=== PATIENT | female | born 1955 | race African-American/Black ===

== ENCOUNTER 2016-10-04 10:22 | Outpatient (CLI) | payer MEDICARE, OTHER ==
[~2016-10-04] VITALS: Ht 157.5 cm; Wt 80.9 kg
[~2016-10-04 10:22] MED LIST: ANTIBIOTIC; ARICEPT10 MG PO; CARAFATE1 G PO; CINNAMON500 MG PO; CO Q-1030 MG PO; DEPRESSION MED; FIBERCON625 MG PO; HYDROCODONE-APA1 TAB PO; LEVOTHYROXINE50 MCG PO; LYRICA75 MG PO; MULTI-DAY VITAM1 TAB PO; NASAL SPRAY; OSCIMIN0.125 M1 PO; POTASSIUM99 M1 PO; PRILOSEC20 MG PO; PROLIA INJ 660 MG/M1 IJ; PROTONIX40 MG PO; ROBAXIN-750750 MG PO; SLOW-MAG 64 MG64 MG PO; SOMA350 MG PO; SUDOGEST30 MG; TYLENOL W/CODEI1 TAB PO; ULTRAM50 MG PO; VICODIN ES 7.51 EAC1 PO; VITAMIN B-121000 MC3 PO; VITAMIN D3400 UNI1 PO; VITAMIN E1000 UNIT PO; XARELTO15 MG PO; [UNRECOGNIZED DRUG - OTHER] PO; [UNRECOGNIZED DRUG - OTHER] PO
[2016-10-04 10:44] VITALS: BP 113/65; Ht 157.5 cm; Wt 80.9 kg
--- NOTE | 2016-10-04 11:01 | NUR ---
1100 PATIENT GIVEN PROLIA INJECTION TO RIGHT UPPER ARM SQ TISSUE WITHOUT OUT PROBLEMS TO THE SITE NOTED, DISCHARGED HOME WITH INSTRUCTIONS. STABLE.
== END 2016-10-04 11:01 ==
LOC: D.OPS 10:22
DX: M81.0 Age-related osteoporosis without current pathological fracture (principal)

== ENCOUNTER → 2016-10-08 16:12 | Outpatient (CLI) | payer MEDICARE, OTHER ==
[2016-10-04 10:44] VITALS: BMI 32.6
== END | disposition home or self-care (01) ==
LOC: D.MAMMO 08:30
DX: Z85.3 Personal history of malignant neoplasm of breast (principal); Z12.31 Encounter for screening mammogram for malignant neoplasm of breast

== ENCOUNTER 2017-05-08 10:24 | Outpatient (CLI) | payer MEDICARE, OTHER ==
[~2017-05-08] VITALS: Ht 157.5 cm; Wt 76.8 kg
[2017-05-08 10:52] VITALS: Ht 157.5 cm; Wt 76.8 kg
== END 2017-05-08 11:07 | disposition home or self-care (01) ==
LOC: D.OPS 10:24
DX: M81.0 Age-related osteoporosis without current pathological fracture (principal)

== ENCOUNTER 2017-11-27 11:19 | Outpatient (CLI) | payer MEDICARE, OTHER ==
[~2017-11-27] VITALS: Ht 157.5 cm; Wt 75.0 kg
[2017-11-27 11:58] VITALS: Ht 157.5 cm; Wt 75.0 kg
== END 2017-11-27 12:15 | disposition home or self-care (01) ==
LOC: D.OPS 11:19
DX: M81.0 Age-related osteoporosis without current pathological fracture (principal)

== ENCOUNTER 2018-02-19 01:58 | Observation (INO) | payer MEDICARE, OTHER ==
[~2018-02-19] VITALS: Ht 157.5 cm; Wt 75.2 kg
--- NOTE | ~2018-02-19 | HEMODYNAMI ---
PATIENT:TATYANA ESPINOZA MEDICAL RECORD: [id number] : 53 LOCATION:[place] [address] ADMISSION DATE: 02/19/18 Generatedon:02/19/201812:51 Patient name: TATYANA ESPINOZA Patient #: [id number] SSN: : 1955 Date of study: 02/19/2018 Page: Of Hemodynamic Procedure Report Patient Data Patient Demographics Procedure consent was obtained First Name: TATYANA Gender: Female Last Name: ALEXIS : 1955 Middle Initial: AZAEL Age: 62 year(s) Patient #: [id number] Race: Black Additional ID: [id number] Contact details Address: [address] [place] [address] State: [place] City: [place] Zip code: [address] Admission Admission Data Admission Date: 02/19/2018 Admission Time: 4:22 Room #: 2115 Procedure Procedure Types Cath Procedure Diagnostic Procedure C [facility] w/Coronaries Procedure Description Procedure Date Procedure Date: 02/19/2018 Procedure Start Time: 12:39 Procedure End Time: 12:45 Procedure Staff Name Function David To MD Performing Physician Jenn Santiago RT Monitor Yelena Reyes RN Nurse Tri Vergara RT Scrub Procedure Data Cath Procedure Fluoroscopy Diagnostic fluoroscopy Total fluoroscopy Time: 0.6 time: 0.6 min min Diagnostic fluoroscopy Total fluoroscopy dose: 214 dose: 214 mGy mGy Contrast Material Contrast Material Type Amount (ml) Isovue 300 46 Entry Location Entry Primary Successful Side Size Upsize Upsize Entry Closure Succes sful Closure Location (Fr) 1 (Fr) 2 (Fr) Remarks Device Remarks Femoral Right 5 Fr Exoseal artery Estimated blood loss: 10 ml Diagnostic catheters Device Type Used For End Catheter Placement MULTIPACK Pigtail 5 Fr Procedure catheter MULTIPACK JL 4.0 5Fr Procedure catheter MULTIPACK 3DRC 5Fr Procedure catheter Procedure Complications No complications Procedure Medications Medication Administration Route Dosage Oxygen NC 2 l/min Lidocaine 1% added to field 20 Heparin Flush Bag added to field 2 bags (1000units/500ml NS) 0.9% NaCl I.V. 100 ml/hr Versed I.V. 2 mg Fentanyl I.V. 100 mcg Fentanyl I.V. 50 mcg Hemodynamics Rest Heart Rate: 47 (bpm) Snapshots Pre Cath Intra NCS Post Cath Vital Signs Time Heart Resp SPO2 etCO2 NIBP (mmHg) Rhythm Pain Sedation Rate (ipm) (%) (mmHg) Status Level (bpm) 12:18:41 51 19 100 0 148/99(112) NSR 0 (11) 10(A) , No pain 12:22:49 49 18 100 38.9 148/87(100) NSR 0 (11) 10(A) , No pain 12:26:57 49 12 100 31.4 132/86(106) NSR 0 (11) 10(A) , No pain 12:31:00 59 18 97 42 122/78(93) NSR 0 (11) 10(A) , No pain 12:35:02 58 15 98 37.5 115/76(93) NSR 0 (11) 10(A) , No pain 12:39:02 60 16 96 40.4 120/73(88) NSR 0 (11) 10(A) , No pain 12:43:07 65 16 100 30 109/64(76) NSR 0 (11) 9(A) , No pain 12:50:11 57 14 100 8.9 119/62(86) NSR 0 (11) 10(A) , No pain Medications Time Medication Route Dose Verified Delivered Reason Notes Effe ctiveness by by 12:26:11 Oxygen NC 2 David Kirk used for l/min Yousuf Reyes RN procedure 12:26:18 Lidocaine 1% added 20ml David Hernandez for local to vial Yousuf To MD anesthetic field 12:26:25 Heparin Flush added 2 David Hernandez used for Bag to bags Yousuf To MD procedure (1000units/500ml field NS) 12:26:36 0.9% NaCl I.V. 100 David Kirk Per ml/hr Yousuf Reyes RN physician 12:39:33 Versed I.V. 2 mg David Kirk for Yousuf Reyes RN sedation 12:39:39 Fentanyl I.V. 100 David Hareie for mcg Tauth MD Reyes RN sedation 12:44:13 Fentanyl I.V. [address] [facility] Yousuf Reyes RN sedation Procedure Log Time Note 12:00:48 Diagnostic Cath status Elective 12:00:50 Jenn Santiago RT(R) sent for patient. Start room use. 12:00:51 Time tracking: Regular hours (M-F 7:00 - 5:00) 12:00:56 Plan of Care:Hemodynamics will remain stable., Cardiac rhythm will remain stable., Comfort level will be maintained., Respiratory function will remain adequate., Patient/ family verbilizes understanding of procedure., Procedure tolerated without complication., Recovers from procedure without complications.. 12:17:32 Patient received from Med II to CCL 2 Alert and oriented. Tansferred to table in Supine position. 12:17:33 Warm blankets applied, and karen hugger turned on for patient comfort. 12:17:33 Correct patient and procedure confirmed by team. 12:17:34 Signed procedure consent form obtained from patient. 12:17:35 ECG and BP/O2 sat monitors applied to patient. 12:17:39 Vital chart was started 12:17:40 Baseline sample Acquired. 12:17:48 Full Disclosure recording started 12:18:02 H&P Date Dictated: 02/19/2018 New H&P dictated by physician.. 12:18:03 Pre-procedure instructions explained to patient. 12:18:04 Pre-op teaching completed and patient verbalized understanding. 12:18:05 Family in waiting room. 12:18:07 Patient NPO since Midnight. 12:21:23 Is the patient allergic to Iodine/contrast media? No. 12:21:25 Was the patient premedicated? Yes 12:21:26 Is patient on blood thinner?Yes 12:21:29 ACC The patient was administered the following blood thiners within the last 24 hours: ACCPlavix 12:21:32 Patient diabetic? No. 12:21:37 Snore? Unknown 12:21:39 Sleep apnea? No 12:21:44 Airway obstruction? Yes asthma 12:21:50 Patient pain scale 0/10 ?. 12:22:01 IV patent on arrival in left forearm with 0.9% NaCl at [facility]. 12:22:10 Lab results completed and on chart. 12:22:13 Right groin area was prepped with chlora-prep and draped in sterile fashion 12:22:14 Alarms reviewed by R. N. 12::15 Sharps counted by scrub and verified by R.N. 12:22:16 Physician paged 12:26:11 Oxygen 2 l/min NC was administered by Yelena Reyes RN; used for procedure; 12::18 Lidocaine 1% 20ml vial added to field was administered by David To MD; for local anesthetic; 12:26:25 Heparin Flush Bag (1000units/500ml NS) 2 bags added to field was administered by David To MD; used for procedure; 12:26:36 0.9% NaCl 100 ml/hr I.V. was administered by Yelena Reyes RN; Per physician; 12:29:59 Zero performed for pressure channel P1 12:30:06 Zero performed for pressure channel P1 12:34:39 Baseline sample Acquired. 12:38:16 Physician arrived 12:38:17 --------ALL STOP TIME OUT------ 12:38:18 Final Timeout: patient, procedure, and site verified with staff and physician. All members of the team are in agreement. 12:38:19 Right groin site verified by team. 12:38:23 Physical assessment completed. ASA score P 2 - A patient with mild systemic disease as per David To MD. 12:38:27 Sedation plan: IV Moderate Sedation Medication:Versed, Fentanyl 12:38:31 Use device set Femoral Dx 12:38:32 ACIST Syringe (38710) opened to sterile field. 12:38:33 Bag Decanter () opened to sterile field. 12:38:33 Medline Cath Pack ([id number]) opened to sterile field. 12:38:34 DIAGNOSTIC WIRE .035 260cm J wire (707953) opened to sterile field. 12:38:35 ACIST Hand Control (00980) opened to sterile field. 12:38:36 ACIST Manifold (12777) opened to sterile field. 12:38:36 DIAGNOSTIC Multipack 5Fr catheter set (ON9961) opened to sterile field. 12:38:37 Tegaderm 4 x 4 (1626W) opened to sterile field. 12:38:38 PERCUTANEOUS ENTRY 19GA needle opened to sterile field. 12:38:41 SHEATH Prelude 5Fr 0.035 (OFQ-0M-71-035) opened to sterile field. 12:38:44 Procedure started. 12:39:33 Versed 2 mg I.V. was administered by Yelena Reyes RN; for sedation; 12:39:39 Fentanyl 100 mcg I.V. was administered by Yelena Reyes RN; for sedation; 12:39:44 A MULTIPACK Pigtail 5 Fr catheter was advanced over the wire and used for Procedure. 12:39:45 Local anesthetic to right femoral artery with Lidocaine 1% by David To MD.INITIAL ACCESS ONLY 12:39:54 A 5 Fr sheath was inserted into the Right Femoral artery 12:40:49 LV angiography performed. 12:40:53 Catheter removed. 12:40:59 EF : 60 % 12:41:06 A MULTIPACK JL 4.0 5Fr catheter was advanced over the wire and used for Procedure. 12:41:11 LCA angiography performed. 12:42:30 Catheter removed. 12:42:36 A MULTIPACK 3DRC 5Fr catheter was advanced over the wire and used for Procedure. 12:42:46 RCA angiography performed. 12:42:48 Catheter removed. 12:42:52 EXOSEAL 5Fr (EX500) opened to sterile field. 12:43:06 Sheath removed intact; hemostasis achieved with Exoseal to the Right Femoral artery. 12:43:23 Procedure ended.(Physican Out) 12:44:00 Fluoroscopy time 00.60 minutes. 12:44:06 Flurop Dose total: 214 12:44:06 Fluoroscopy dose: 214 mGy 12:44:13 Fentanyl 50 mcg I.V. was administered by Yelena Reyes RN; for sedation; 12:44:20 Contrast amount:Isovue 300 46ml. 12:44:22 Sharps counted by scrub and verified by R.N. 12:44:24 Insertion/operative site no bleeding no hematoma. 12:44:25 Post Procedure Pulses reassessed and unchanged 12:44:30 Post procedure rhythm: unchanged. 12:44:33 Estimated blood loss: 10 ml 12:44:35 Post procedure instruction explained to patient.Patient verbalizes understanding. 12:44:47 Procedure and supply charges have been captured, reviewed, submitted and are correct. 12:45:11 Procedure Complication : No complications 12:45:16 Vital chart was stopped 12:45:17 See physician's report for complete and final results. 12:45:21 Report given to [facility]. 12:45:24 Patient transfered to [facility] with Bed. 12:45:27 Procedure ended. 12:45:27 Full Disclosure recording stopped 12:45:30 End room use (Document Last) Device Usage Item Name Manufacture Quantity Catalog Number Hospital Part Current M inimal Lot# / Charge Number Stock Stock Serial# Code ACIST Syringe Acist 1 87652 582114 550152 043811 2 0 (13386) [employer] Bag Decanter Microtek 1 2001S 627603 69006 497456 5 (2001S) Medical Inc. Medline Cath Cardinal 1 [id number] 201007 24778 045847 5 Pack Health ([id number]) DIAGNOSTIC WIRE [facility] 1 092042 368387 414052 446575 3 0 .035 260cm J wire (881925) ACIST Hand Acist 1 93907 977183 402168 840273 5 Control (50447) [employer] Inc ACIST Manifold Acist 1 55906 111532 682478 400611 5 (06567) [employer] Inc DIAGNOSTIC Cardinal 1 TR9910 849169 43449 686406 3 0 Multipack 5Fr Health catheter set (SI5766) Tegaderm 4 x 4 3M 1 1626W 062331 838530 202230 5 (1626W) PERCUTANEOUS Cook Medical 1 Q37683 244257 841367 5 ENTRY 19GA needle SHEATH Prelude Merit 1 PZZ-0I-81-035 372223 227847 945935 5 5Fr 0.035 Medical (JKC-0E-68-035) MULTIPACK Cardinal 1 750177 5 Pigtail 5 Fr Health catheter MULTIPACK JL Cardinal 1 005580 5 4.0 5Fr Health catheter MULTIPACK 3DRC Cardinal 1 578731 5 5Fr catheter Health EXOSEAL 5Fr Cardinal 1 EX500 853501 819186 352444 1 0 (EX500) Health Signature Audit [place] Stage Time Signature Unsigned Intra-Procedure 02/19/2018 Jenn Santiago 12:51:31 PM RT(R) Signatures Monitor : Jenn Santiago Signature : RT Date : Time : [place] [id number] [place] [address]
--- NOTE | ~2018-02-19 | DS ---
PATIENT:TATYANA ESPINOZA :53 MEDICAL RECORD: [id number] DISCHARGE SUMMARY ADMISSION DATE: 02/19/18 DISCHARGE DATE: 02/19/18 DISCHARGE DIAGNOSES: 1. Chest pain of unknown etiology. 2. Normal cardiac catheterization. HOSPITAL COURSE: Mrs. Espinoza presents with anginal symptomatology; however, cardiac catheterization reveals no significant coronary artery disease, chest pain is noncardiac in etiology. Discharged home. No cardiac followup is necessary. TRANSINT:[id number] Voice Confirmation ID: [id number] DOCUMENT ID: [id number] GOOD HOLLOWAY MD at 1705 CC: [id number] DICTATION DATE: 02/19/18 1245 ACID CHANGER: 02/19/18 1429 DIS IN 02/19/18 [place] [id number] [place] [address]
--- NOTE | ~2018-02-19 | OP ---
PATIENT NAME: TATYANA ESPINOZA MEDICAL RECORD: [id number] :53 LOCATION:D.M2 D.2115 ADMISSION DATE:02/19/18 SURGEON: GOOD HOLLOWAY MD DATE OF OPERATION: 02/19/2018 PROCEDURES: 1. Left heart catheterization. 2. Selective coronary angiography. 3. Left ventriculogram. INDICATION: Angina and coronary artery disease. PROCEDURE IN DETAIL: After informed consent was obtained and after a detailed explanation of the risks, benefits as well as alternative therapies, the patient proceeded with angiogram and angioplasty. The right femoral area was prepped and draped in normal sterile fashion. Right femoral artery was cannulated via modified Seldinger technique with placement of 5-Greenlandic sheath. All catheters exchanged through this sheath. FINDINGS: The left ventriculogram was performed in standard 30-degree DOLAN view, reveals good cardiac wall motion throughout all segments. Overall ejection fraction estimated 60%. SELECTIVE CORONARY ANGIOGRAPHY: Left main, left anterior descending, left circumflex, right coronary artery are all smooth-walled vessels with no angiographic evidence of coronary artery disease. OVERALL IMPRESSION: 1. No angiographic evidence of coronary artery disease. 2. Normal left heart pressures. 3. Normal left ventricular systolic function. Chest pain is noncardiac in etiology. No further cardiac workup needs to be ascertained. TRANSINT:[id number] Voice Confirmation ID: [id number] DOCUMENT ID: [id number] GOOD HOLLOWAY MD at 1705 CC: [id number] DICTATION DATE: 02/19/18 1247 CHARTING CLERK: 02/19/18 1317 DIS IN 02/19/18 [facility] [address] [place] [address]
--- NOTE | ~2018-02-19 | HP ---
PATIENT: TATYANA ESPINOZA MEDICAL RECORD: [id number] ACCOUNT: [id number] LOCATION:[facility] D.2115 : 53 ADMISSION DATE: 02/19/18 HISTORY AND PHYSICAL EXAMINATION ADMITTING DIAGNOSIS: Chest pain compatible with angina. HISTORY OF PRESENT ILLNESS: Ms. Espinoza has no previous cardiac history. She had severe onset of classic anginal chest discomfort, a dull aching heaviness, band-like sensation around her chest. She had multiple sublingual nitros, did not relieve it and morphine finally relieved the chest pain. She has had recurrence of it, nitro relieved the recurrence of that. Her EKG is with nonspecific ST-T abnormalities. PHYSICAL EXAMINATION: GENERAL APPEARANCE: Well-nourished, well-developed, appears stated age. Level of distress, comfortable. PSYCHIATRIC: Mental status, alert, normal affect. Orientation, oriented to time, place and person. EYES: Lids and conjunctiva, noninjected. No discharge, no pallor. ENT: Lips, teeth, gums, normal dentition. Oropharynx, no cyanosis, no pallor. NECK: Carotid arteries, bilateral normal upstroke, no bruits, no thrills. JUGULAR VEINS: No jugular venous pressure or distention. CERVICAL LYMPH NODES: Nontender, nonenlarged. THYROID: Not enlarged. Nontender. No nodules. LUNGS: Respiratory effort, unlabored. CHEST: Normal curvature. No thoracic deformity. No chest wall tenderness. Percussion, resonant. Auscultation, clear. No wheezes, no rales, no rhonchi. CARDIOVASCULAR: Precordial exam, nondisplaced. No heaves or pericardial thrills. Rate and rhythm, regular. Heart sounds, normal S1, normal S2. No S3, no gallop, no rub. Systolic murmur, not heard. Diastolic murmur, not heard. EXTREMITIES: No cyanosis, no edema. Peripheral pulses, full and equal in all extremities, except as noted. No bruits appreciated. ABDOMEN: Soft, nondistended. Normal aorta. No bruit. Nontender. No masses. Liver, nontender, no hepatomegaly. Spleen, nontender, no splenomegaly. MUSCULOSKELETAL: No joint tenderness. No joint swelling. No erythema. NEUROLOGICAL: Normal gait, normal strength, normal tone. SKIN: Warm and dry. REVIEW OF SYSTEMS: The patient reports easy bruising but reports no swollen glands. The patient reports no fever, no night sweats, no significant weight gain, no significant weight loss. No significant exercise tolerance. The patient reports no dry eyes, no irritation, no vision change. Patient reports no difficulty hearing and no ear pain. Patient reports no frequent nose bleeds or nose and sinus problems. Patient reports on arm pain on exertion. No shortness of breath while lying down. No history of heart murmur. Patient reports no cough, no wheezing or coughing up blood. Patient reports no abdominal pain, no vomiting. Normal appetite. No diarrhea and not vomiting blood. No nausea and no constipation. Patient reports no incontinence. No difficulty urinating. No hematuria. No increased frequency. Patient reports no muscle aches. No weakness, no arthralgias, no back pain. No swelling of the extremities. Patient reports no abnormal mole, no jaundice, no rashes. Reports no loss of consciousness. No weakness and no numbness. No seizures, dizziness, or headaches. The patient reports no depression, no sleep disturbance, feeling safe in a relationship and no alcohol abuse. Patient reports on fatigue. HISTORY AND PHYSICAL [id number] TATYANA ESPINOZA Reports no runny nose or sinus pressure. No itching, no hives, and no frequent sneezing. OVERALL IMPRESSION: Chest pain compatible with angina with recurrent pain. We will proceed with coronary angiography. Further care depends upon findings of the angiography. TRANSINT:[id number] Voice Confirmation ID: [id number] DOCUMENT ID: [id number] GOOD HOLLOWAY MD at 1705 CC: [id number] DICTATION DATE: 02/19/18 0845 CHAIN FORMING MACHINE OPERATOR: 02/19/18 0853 DIS IN 02/19/18 [facility] [address] [place] [id number]
[~2018-02-19 01:58] MED LIST changes: -SUDOGEST30 MG; +SUDOGEST30 MG PO
[2018-02-19 03:02] LABS: BASOPHILS 0.3 % (0-2); EOSINOPHILS 4.1 % (0-7); HEMATOCRIT 31.7 % (36.0-48.0); HEMOGLOBIN 10.5 g/dL (12-16); LYMPHOCYTES 44.2 % (15-50); MCH 27.1 pg (26.0-34.0); MCHC 33.1 g/dL (31.0-37.0); MCV 81.7 fL (80.0-100.0); MEAN PLATELET VOLUME 8.3 fL (7.4-10.4); MONOCYTES 11.6 % (2-11); NEUTROPHILS 39.8 % (40-80); PLATELET COUNT 136 10x3/uL (130-400); RBC 3.88 10x6/uL (4.00-5.40); RDW 15.8 % (11.5-14.5); WBC 3.2 10x3/uL (4.8-10.8)
[2018-02-19 03:15] LABS: ALBUMIN 3.2 g/dL (3.4-5.0); ALKALINE PHOSPHATASE 65 U/L (46-116); ALT (SGPT) 42 U/L (10-68); CALC OSMOLALITY 287 mosm/kg (275-300); CARBON DIOXIDE 23.3 mmol/L (21.0-32.0); CHLORIDE - SERUM 108 mmol/L (98-107); CREATININE - SERUM 1.3 mg/dL (0.6-1.3); GLUCOSE 101 mg/dL (74-106); POTASSIUM - SERUM 3.3 mmol/L (3.5-5.1); PROTEIN - SERUM 7.7 g/dL (6.4-8.2); SODIUM 142 mmol/L (136-145); UREA NITROGEN 27 mg/dL (7-18); eGFR NON AFRICAN AMERICAN 44 mL/min (90-120)
[2018-02-19 03:22] LABS: CREATINE KINASE 147 UL (21-215); TROPONIN-I < 0.017 ng/mL (0.000-0.060)
[2018-02-19 03:32] VITALS: BP 110/64
[2018-02-19 05:08] VITALS: BP 143/57
[2018-02-19] MEDS ORDERED: DITROPAN X10 MG/BOTT PO (05:12)
[2018-02-19 05:21] VITALS: BP 143/57; Ht 157.5 cm; Wt 75.2 kg
[2018-02-19 07:53] VITALS: BP 114/63
[2018-02-19 11:52] VITALS: BP 113/68
== END 2018-02-19 15:36 | disposition home or self-care (01) ==
LOC: D.ER 01:58 → D.EDHOLD 04:22 → D.M2 04:22 → D.EDHOLD 04:22 → OBSVTIME 04:22 → D.M2 04:28
PROVIDERS: Emergency Medicine
DX: R07.89 Other chest pain (principal)

== ENCOUNTER → 2018-02-28 06:35 | Outpatient (CLI) | payer MEDICARE, OTHER ==
[2018-02-19 05:21] VITALS: BMI 30.3
[~2018-02-28 06:35] MED LIST changes: +DITROPAN X10 MG/BOTT PO
== END | disposition home or self-care (01) ==
LOC: D.MRI 06:35
DX: R19.09 Other intra-abdominal and pelvic swelling, mass and lump (principal)

== ENCOUNTER → 2018-06-04 12:24 | Outpatient (CLI) | payer MEDICARE, OTHER ==
[~2018-06-04] VITALS: Ht 157.5 cm; Wt 76.8 kg
[2018-06-04 12:46] VITALS: BP 115/71; Ht 157.5 cm; Wt 76.8 kg
== END | disposition home or self-care (01) ==
LOC: D.OPS 12:00
DX: M81.0 Age-related osteoporosis without current pathological fracture (principal); Z01.812 Encounter for preprocedural laboratory examination

== ENCOUNTER → 2019-02-27 10:00 | Outpatient (CLI) | payer MEDICARE, OTHER ==
[2018-06-04 12:46] VITALS: BMI 31.0
== END | disposition home or self-care (01) ==
LOC: D.MAMMO 10:00
PROVIDERS: ATTEND Family Medicine
DX: Z12.31 Encounter for screening mammogram for malignant neoplasm of breast (principal)

== ENCOUNTER 2019-08-27 18:03 | Observation (INO) | payer MEDICARE, BC ==
[~2019-08-27] VITALS: Ht 157.5 cm; Wt 78.0 kg
--- NOTE | ~2019-08-27 | ST ---
PATIENT:TATYANA ESPINOZA MEDICAL RECORD: [id number] SEX: F LOCATION:[address] ORDER #: ADMISSION DATE: 08/27/19 AGE OF PATIENT: 63 REFERRING PHYSICIAN: INTERPRETING PHYSICIAN: GOOD HOLLOWAY MD DATE OF SERVICE: 08/28/2019 INDICATIONS: Chest pain. She was exercised on standard Lexiscan protocol with 27 mCi of sestamibi injected at peak stress, 10 mCi used previously for rest images. FINDINGS: Gated SPECT reveals a preserved ejection fraction at 72% with good wall motioning and thickening and brightening throughout all segments. SPECT Imaging: Cardiolite was used for myocardial perfusion agent. There is reversibility anteriorly and apically. This includes the basal, mid, apical anterior segments as well as partially in the apex itself. The degree of reversibility is mild. The amount of myocardium involved is moderate. OVERALL IMPRESSION: This is an abnormal nuclear stress test. Reversible ischemia throughout the anteroapical segment suggestive of hemodynamically significant coronary artery disease. TRANSINT:[id number] Voice Confirmation ID: [id number] DOCUMENT ID: [id number] GOOD HOLLOWAY MD CC: [id number] DICTATION DATE: 08/30/19 121 LINE REPAIRER: 08/30/198 DIS IN 08/28/19 [facility] [address] [place] [id number]
--- NOTE | ~2019-08-27 | HP ---
PATIENT: TATYANA ESPINOZA MEDICAL RECORD: [id number] ACCOUNT: [id number] LOCATION:[address] : 53 ADMISSION DATE: 08/27/19 PCP: NICA GABRIEL MD HISTORY AND PHYSICAL EXAMINATION ADMITTING DIAGNOSES: 1. Chest pain compatible with angina. 2. History of deep vein thrombosis, right upper extremity. 3. Gastroesophageal reflux disease. HISTORY OF PRESENT ILLNESS: Ms. Espinoza has no cardiac history. She began having chest pain yesterday. She had relief with 3 sublingual nitros en route to the Emergency Room. Her EKG is with nonspecific ST-T abnormalities. She has had no recurrent pain. Her troponin is normal. PHYSICAL EXAMINATION: CONSTITUTIONAL/GENERAL APPEARANCE: Well nourished, well developed, appears stated age. EYES: Lids and conjunctivae noninjected. No discharge. No pallor. ENT: Lips within normal limit. No cyanosis. No pallor. NECK: Carotid arteries, bilateral normal upstroke. No bruits. No thrills. No jugular venous pressure or distention. CERVICAL LYMPH NODES: Nontender. Nonenlarged. THYROID: Not enlarged. No nodules. CARDIOVASCULAR: Precordial exam, nondisplaced. No heaves or pericardial thrills. Rate and rhythm, regular. Heart sounds, normal S1, normal S2. No S3, no gallop, no rub. Systolic murmur, not heard. Diastolic murmur, not heard. RESPIRATORY: Respiratory effort, unlabored. Normal curvature. No thoracic deformity. No chest wall tenderness. Percussion, resonant. Auscultation, clear. No wheezes, no rales, no rhonchi. ABDOMEN: Soft, nondistended, nontender. No abdominal pain, no vomiting and normal appetite. MUSCULOSKELETAL: No joint tenderness, normal gait, normal tone. SKIN: Warm and dry. OVERALL IMPRESSION: Chest pain relieved with nitro, relatively typical pain from a cardiac standpoint with pressure dull aching heavy sensation across the anterior chest. We will risk stratify with stress testing, Cardiolite imaging. Further care depends upon the findings of the stress test. TRANSINT:[id number] Voice Confirmation ID: [id number] DOCUMENT ID: [id number] GOOD HOLLOWAY MD CC: [id number] DICTATION DATE: 08/28/19843 RIB PULLER: 08/28/19925 ADM IN [facility] [address] [place] [address]
--- NOTE | ~2019-08-27 | HEMODYNAMI ---
PATIENT:TATYANA ESPINOZA MEDICAL RECORD: [id number] : 53 LOCATION:[facility] D.2120 ADMISSION DATE: 08/27/19 Generatedon:08/28/201915:59 Patient name: TATYANA ESPINOZA Patient #: [id number] SSN: [id number] : 1955 Date of study: 08/28/2019 Page: Of Hemodynamic Procedure Report Patient Data Patient Demographics Procedure consent was obtained First Name: TATYANA Gender: Female Last Name: ALEXIS : 1955 Middle Initial: AZAEL Age: 63 year(s) Patient #: [id number] Race: Black SSN: [id number] Additional ID: [id number] Contact details [address]: [address] [place] [address] State: [place] City: [place] Zip code: [address] Past Medical History Allergies: No known allergies Admission Admission Data Admission Date: 08/27/2019 Admission Time: 20:03 Room #: D2120 Lab Results Lab Result Date: 08/28/2019 Lab Result Time: 0:00 Biochemistry Name Units Result Min Max BUN mg/dl 16 --(---*)-- 7 18 CK-MB ng/ml 0.5 --(*---)-- 0 3.6 Creatinine mg/dl 1 --(--*-)-- 0.6 1.3 eGFR ml/min 59 *-(----)-- 90 120 NONAFRICAN Troponin l ng/ml 0.017 --(-*--)-- 0 0.06 CBC Name Units Result Min Max Hematocrit % 32.3 *-(----)-- 42 54 Hemoglobin g/dl 10.4 *-(----)-- 13.5 17.5 Procedure Procedure Types Cath Procedure Diagnostic Procedure LHC LHC w/Coronaries Procedure Description Procedure Date Procedure Date: 08/28/2019 Procedure Start Time: 15:47 Procedure End Time: 15:54 Procedure Staff Name Function David To MD Performing Physician Nenita Hussein RT Monitor Harshil Diamond RN Nurse Edna Cerrato RT Scrub Venkata Chu RT Pulp Grinder Feeder Procedure Data Cath Procedure Fluoroscopy Diagnostic fluoroscopy Total fluoroscopy Time: 0.9 time: 0.9 min min Diagnostic fluoroscopy Total fluoroscopy dose: 265 dose: 265 mGy mGy Contrast Material Contrast Material Type Amount (ml) Isovue 300 59 Entry Location Entry Primary Successful Side Size Upsize Upsize Entry Closure Succes sful Closure Location (Fr) 1 (Fr) 2 (Fr) Remarks Device Remarks Femoral Right 5 Fr Exoseal artery Estimated blood loss: 5 ml Diagnostic catheters Device Type Used For End Catheter Placement MULTIPACK Pigtail 5 Fr Procedure catheter MULTIPACK JL 4.0 5Fr Procedure catheter MULTIPACK 3DRC 5Fr Procedure catheter Procedure Complications No complications Procedure Medications Medication Administration Route Dosage 0.9% NaCl I.V. 100 ml/hr Oxygen etCO2 Nasal cannula 2 l/min Heparin Flush Bag added to field 2 bags (1000units/500ml NS) Lidocaine 2% added to field 20 Versed I.V. 2 mg Fentanyl I.V. 100 mcg Versed I.V. 2 mg Hemodynamics Rest HGB: 10.4 (g/dl) Heart Rate: 52 (bpm) Snapshots Pre Cath Intra NCS Post Cath Vital Signs Time Heart Resp SPO2 etCO2 NIBP (mmHg) Rhythm Pain Sedation Rate (ipm) (%) (mmHg) Status Level (bpm) 15:27:09 51 11 100 0 159/78(108) NSR 0 (11) 10(A) , No pain 15:31:27 52 15 98 37.9 135/72(97) NSR 0 (11) 10(A) , No pain 15:35:43 60 13 98 37.1 130/74(96) NSR 0 (11) 10(A) , No pain 15:39:57 55 11 97 36.3 121/67(84) NSR 0 (11) 10(A) , No pain 15:44:13 55 11 97 40.9 114/64(80) NSR 0 (11) 10(A) , No pain 15:48:23 58 13 97 42.4 125/74(94) NSR 0 (11) 10(A) , No pain 15:52:37 75 12 96 40.9 123/61(90) NSR 0 (11) 9(A) , No pain Medications Time Medication Route Dose Verified Delivered Reason Notes Eff ectiveness by by 15:31:26 0.9% NaCl I.V. 100 Harshil Harshil Per ml/hr Dara Diamond physician RN RN 15:31:36 Oxygen etCO2 2 Harshil Harshil for low 02 Nasal l/min Lorigan Lorigan sats cannula RN RN 15:31:48 Heparin Flush added 2 Harshil Harshil used for Bag to bags Lorigan Lorigan procedure (1000units/500ml field RN RN NS) 15:32:02 Lidocaine 2% added 20ml Harshil Harshil for local to vial Lorigan Lorigan anesthetic field RN RN 15:48:39 Versed I.V. 2 mg Harshil Harshil for Lorigan Lorigan sedation RN RN 15:48:48 Fentanyl I.V. 100 Harshil Harshil for mcg Lorigan Lorigan sedation RN RN 15:49:31 Versed I.V. 2 mg Harshil Harshil for Lorigan Lorigan sedation RN neon electrician Log Time Note 15:15:23 Diagnostic Cath Status : Urgent 15:17:05 Venkata Chu RT(R) sent for patient. Start room use. 15:17:07 Time tracking: Regular hours (M-F 7:00 - 5:00) 15:17:12 Plan of Care:Hemodynamics will remain stable., Cardiac rhythm will remain stable., Comfort level will be maintained., Respiratory function will remain adequate., Patient/ family verbilizes understanding of procedure., Procedure tolerated without complication., Recovers from procedure without complications.. 15:17:17 Procedure Status Urgent Heart Cath (IP). 15:18:17 Lab Result : BUN 16 mg/dl 15:18:17 Lab Result : Creatinine 1 mg/dl 15:18:17 Lab Result : CK-MB 0.5 ng/ml 15:18:17 Lab Result : Troponin l 0.017 ng/ml 15:18:17 Lab Result : eGFR NONAFRICAN 59 ml/min 15:18:17 Lab Result : Hemoglobin 10.4 g/dl 15:18:17 Lab Result : Hematocrit 32.3 % 15:18:22 Lab results completed and on chart. 15:18:35 Patient received from Med II to CCL 1 Alert and oriented. Tansferred to table in Supine position. 15:18:43 Signed procedure consent form obtained from spouse. 15:18:43 Warm blankets applied, and karen hugger turned on for patient comfort. 15:18:44 Correct patient and procedure confirmed by team. 15:18:46 ECG and BP/O2 sat monitors applied to patient. 15:21:20 H&P Date Dictated: 08/28/2019 Emergent; H&P N/A, Within 30 days and on chart.. 15:21:29 Risk of Mortality: 0.9 15:21:32 Risk of blood transfusion: 6.5 15:21:35 Risk of LASHONDA: 2.3 15:21:39 Stress Test: yes; abnormal ? 15:21:41 Alarms reviewed by R. N. 15:21:41 Sharps counted by scrub and verified by R.N. 15:21:48 Right groin area was prepped with chlora-prep and draped in sterile fashion 15:21:52 Vital chart was started 15:21:53 Pre-procedure instructions explained to patient. 15:21:54 Pre-op teaching completed and patient verbalized understanding. 15::59 Patient NPO since Lunch. 15:22:07 Patient allergic to No known allergies 15:22:10 Is the patient allergic to Iodine/contrast media? No. 15:22:12 Was the patient premedicated? Yes 15:22:17 Snore? No 15:22:18 Sleep apnea? No 15:22:19 Deviated septum? No 15:22:20 Opens mouth fully? Yes 15:22:21 Sticks out tongue? Yes 15:22:24 Airway obstruction? No ? 15:22:27 Dentures? No ? 15:22:30 Pre procedure: right dorsailis pedis pulse 2+ Normal; easily identifiable; not easily obliterated 15:22:33 Patient pain scale 0/10 ?. 15:26:51 Baseline sample Acquired. 15::57 Rhythm: sinus bradycardia 15::59 Full Disclosure recording started 15::02 Family in patients room. 15:27:07 Is patient on blood thinner?Yes 15:27:10 ACC The patient was administered the following blood thiners within the last 24 hours: Xarelto 15::21 LAST DOES OF XARELTO ON THE 15:27:23 Patient diabetic? No. 15:27:25 Patient not . Patient is over age 55. 15:27:34 Use device set Femoral Dx 15:27:35 ACIST Syringe (99020) opened to sterile field. 15:27:35 Bag Decanter (2002S) opened to sterile field. 15:27:36 ACIST Hand Control (68847) opened to sterile field. 15:27:36 ACIST Manifold (86791) opened to sterile field. 15:27:37 Tegaderm 4 x 4 (1626W) opened to sterile field. 15:27:39 Medline Cath Pack ([id number]) opened to sterile field. 15:27:40 DIAGNOSTIC Multipack 5Fr catheter set (OS5332) opened to sterile field. 15:27:40 SHEATH 5FR [place] (XNM893) opened to sterile field. 15:27:41 EMERALD Guide Wire (645-554) opened to sterile field. 15:31:26 0.9% NaCl 100 ml/hr I.V. was administered by Harshil Diamond RN; Per physician; Verbal order read back and verified. 15:31:36 Oxygen 2 l/min etCO2 Nasal cannula was administered by Harshil Diamond RN; for low 02 sats; Verbal order read back and verified. 15:31:48 Heparin Flush Bag (1000units/500ml NS) 2 bags added to field was administered by Harshil Diamond RN; used for procedure; Verbal order read back and verified. 15:32:02 Lidocaine 2% 20ml vial added to field was administered by Harshil Diamond RN; for local anesthetic; Verbal order read back and verified. 15:46:00 --------ALL STOP TIME OUT------ 15:46:01 Final Timeout: patient, procedure, and site verified with staff and physician. All members of the team are in agreement. 15:46:02 Right groin site verified by team. 15:46:05 Fire Safety Assessment: A--An alcohol-based skin anteseptic being used preoperatively., C--Open oxygen or nitrous oxide is being used., D--An ESU, laser, or fiber-optic light is being used. 15:46:10 Physical assessment completed. ASA score P 2 - A patient with mild systemic disease as per David To MD. 15:46:16 3a) 45-59 Moderately reduced kidney function. 15:46:20 Maximum allowable contrast dose (3.7 X eGFR X 0.75)163 ml. 15:46:23 Sedation plan: IV Moderate Sedation Medication:Versed, Fentanyl 15:47:06 Procedure started. 15:47:48 Local anesthetic to right femoral artery with Lidocaine 2% by David To MD.INITIAL ACCESS ONLY 15:48:39 Versed 2 mg I.V. was administered by Harshil Diamond RN; for sedation; Verbal order read back and verified. 15:48:39 A 5 Fr sheath was inserted into the Right Femoral artery 15:48:48 Fentanyl 100 mcg I.V. was administered by Harshil Diamond RN; for sedation; Verbal order read back and verified. 15:48:49 A MULTIPACK Pigtail 5 Fr catheter was advanced over the wire and used for Procedure. 15:48:54 LV gram done using DOLAN 15:48:57 Injector settings: Ml/sec: 10, Volume: 20, 15:49:10 EF : 60 % 15:49:12 Catheter removed. 15:49:31 Versed 2 mg I.V. was administered by Harshil Diamond RN; for sedation; Verbal order read back and verified. 15:49:31 A MULTIPACK JL 4.0 5Fr catheter was advanced over the wire and used for Procedure. 15:50:35 LCA angiography performed. 15:50:37 Catheter removed. 15:50:46 A MULTIPACK 3DRC 5Fr catheter was advanced over the wire and used for Procedure. 15:51:18 RCA angiography performed. 15:51:19 Catheter removed. 15:51:23 EXOSEAL 5Fr (EX500) opened to sterile field. 15:51:52 Sheath removed intact; hemostasis achieved with Exoseal to the Right Femoral artery. 15:52:15 Procedure ended.(Physican Out) 15:53:02 Fluoroscopy time 00.90 minutes. 15:53:11 Fluoroscopy dose: 265 mGy 15:53:11 Flurop Dose total: 265 15:53:17 Dose Area Product 85697 mGy/cm. 15:53:22 Contrast amount:Isovue 300 59ml. 15:53:25 Maximum allowable dose exceeded? No. 15:53:26 Sharps counted by scrub and verified by R.N. 15:53:29 Post-op/insertion site Right Femoral artery dressed using a 4 x 4 and Tegaderm. 15:53:32 Post-procedure physical assessment completed. ASA score P 2 - A patient with mild systemic disease as per David To MD. 15:53:36 Post procedure rhythm: sinus rhythm 15:53:41 Estimated blood loss: 5 ml 15:53:42 Post procedure instruction explained to patient.Patient verbalizes understanding. 15:53:43 Patient needs reinforcement of post procedure teaching. 15:54:14 Procedure and supply charges have been captured, reviewed, submitted and are correct. 15:54:19 Procedure Complication : No complications 15:54:21 Vital chart was stopped 15:54:22 [facility] Findings: mild to moderate CAD (<70%) 15:54:24 Operative report dictated upon procedure completion. 15:54:25 See physician's report for complete and final results. 15:54:38 Report given to PCU. 15:54:41 Patient transfered to PCU with Bed. 15:54:42 Procedure ended. 15:54:42 Full Disclosure recording stopped 15:54:44 End room use (Document Last) 15:58:28 End room use (Document Last) 15:58:45 End room use (Document Last) Device Usage Item Name Manufacture Quantity Catalog Hospital Part Current Minimal L ot# / Number Charge Number Stock Stock Serial# Code ACIST Acist 1 28251 944154 493336 266926 20 Syringe Medical (66566) Systems Inc Bag Microtek 1 2001S 922578 95144 852697 5 Decanter Medical Inc. () ACIST Hand Acist 1 14856 160774 862119 316726 5 Control Medical (19270) Systems Inc ACIST Acist 1 05960 484862 110985 222180 5 Manifold Medical (14644) Systems Inc Tegaderm 4 3M 1 1626W 142208 978272 295485 5 x 4 (1626W) Medline Medline 1 [id number] 066572 71605 832888 5 Cath Pack ([id number]) DIAGNOSTIC Cardinal 1 YK0179 630441 88460 231504 30 [facility] 5Fr catheter set (GN4429) SHEATH 5FR Terumo 1 JOQ968 924193 295141 658531 5 [place] (FAO956) EMERALD Cardinal 1 502-455 669758 988691 333494 5 Guide Wire [facility] (233-601) MULTIPACK Cardinal 1 509543 5 Pigtail 5 Health Fr catheter MULTIPACK Cardinal 1 549554 5 JL 4.0 5Fr Health catheter MULTIPACK Cardinal 1 052803 5 3DRC 5Fr Health catheter EXOSEAL 5Fr Cardinal 1 EX500 348619 489346 965368 10 (EX500) Health Signature Audit [place] Stage Time Signature Unsigned Intra-Procedure 08/28/2019 Nenita Hussein 3:58:28 PM RT(R) Intra-Procedure 08/28/2019 Harshil 3:58:45 PM Dara SHERMAN Intra-Procedure 08/28/2019 David To 3:59:06 PM [id number] [place] [address]
--- NOTE | ~2019-08-27 | DS ---
PATIENT:TATYNAA ESPINOZA :53 MEDICAL RECORD: [id number] DISCHARGE SUMMARY ADMISSION DATE: 08/27/19 DISCHARGE DATE: 08/28/19 DATE OF DISCHARGE: 08/28/2019 DISCHARGE DIAGNOSES: 1. Chest pain. 2. Normal cardiac catheterization this admission. HOSPITAL COURSE: Mrs. Espinoza presents with chest pain; however, cardiac catheterization was normal. Discharged home to follow up with her primary care physician for noncardiac chest pain. TRANSINT:[id number] Voice Confirmation ID: [id number] DOCUMENT ID: [id number] GOOD HOLLOWAY MD CC: [id number] DICTATION DATE: 08/28/19 1555 LUMBER SALVAGER: 08/29/19 0400 DIS IN 08/28/19 [id number] [place] [address]
--- NOTE | ~2019-08-27 | OP ---
PATIENT NAME: TATYANA ESPINOZA MEDICAL RECORD: [id number] :53 LOCATION:D.M2 D.0 ADMISSION DATE:08/27/19 SURGEON: GOOD HOLLOWAY MD DATE OF OPERATION: 08/28/2019 PROCEDURES: 1. Left heart catheterization. 2. Selective coronary angiography. 3. Left ventriculogram. INDICATION: Chest pain and abnormal nuclear stress test. PROCEDURE IN DETAIL: After informed consent was obtained and after a detailed description of the risks, benefits as well as alternative therapies, the patient elected to proceed with angiogram and heart catheterization. The right femoral area was prepped and draped in normal sterile fashion. The right femoral artery was cannulated via modified Seldinger technique with placement of 6-Turkish sheath. All catheters exchanged through this sheath. FINDINGS: Left ventriculogram was performed in standard 30-degree DOLAN view, reveals good cardiac wall motion, ejection fraction estimated 60%. SELECTIVE CORONARY ANGIOGRAPHY: Left main, left anterior descending, left circumflex, right coronary artery are all smooth-walled vessels with no angiographic evidence of coronary artery disease. OVERALL IMPRESSION: 1. No angiographic evidence of coronary artery disease. 2. Normal left heart pressures. 3. Normal left ventricular systolic function. Chest pain is noncardiac in etiology. Stress test was false positive. No further cardiac workup necessary. TRANSINT:[id number] Voice Confirmation ID: [id number] DOCUMENT ID: [id number] GOOD HOLLOWAY MD CC: [id number] DICTATION DATE: 08/28/19 1557 BREEDING TECHNICIAN: 08/28/192141 DIS IN 08/28/19 [id number] [place] [address]
[2019-08-27 18:31] LABS: BASOPHILS 0 % (0-2); EOSINOPHILS 0.6 % (0-7); HEMATOCRIT 32.3 % (36.0-48.0); HEMOGLOBIN 10.4 g/dL (12-16); IMMATURE GRANULOCYTES 0.2 % (0-5); LYMPHOCYTES 18.6 % (15-50); MCH 27.7 pg (26.0-34.0); MCHC 32.2 g/dL (31.0-37.0); MCV 86.1 fL (80.0-100.0); MEAN PLATELET VOLUME 8.6 fL (7.4-10.4); MONOCYTES 7.5 % (2-11); NEUTROPHILS 73.1 % (40-80); RBC 3.75 10x6/uL (4.00-5.40); RDW 16.4 % (11.5-14.5); WBC 4.7 10x3/uL (4.8-10.8)
[2019-08-27 18:32] LABS: PLATELET COUNT 152 10x3/uL (130-400)
[2019-08-27 18:41] LABS: CALC OSMOLALITY 281 mosm/kg (275-300); CALCIUM 8.5 mg/dL (8.5-10.1); CARBON DIOXIDE 27.4 mmol/L (21.0-32.0); CHLORIDE - SERUM 107 mmol/L (98-107); GLUCOSE 95 mg/dL (74-106); POTASSIUM - SERUM 3.5 mmol/L (3.5-5.1); SODIUM 141 mmol/L (136-145); UREA NITROGEN 16 mg/dL (7-18); eGFR NON AFRICAN AMERICAN 59 mL/min (90-120)
[2019-08-27 18:52] LABS: APTT 31.5 SECONDS (22.8-39.4); INR 1.08 (0.85-1.17); PROTIME 13.5 SECONDS (11.6-15.0)
[2019-08-27 18:58] LABS: ALBUMIN 3.1 g/dL (3.4-5.0); ALKALINE PHOSPHATASE 89 U/L (46-116); ALT (SGPT) 47 U/L (10-68); BILIRUBIN - TOTAL 0.31 mg/dL (0.2-1.3); CKMB 0.8 U/L (0.0-3.6); CREATINE KINASE 75 UL (21-215); MAGNESIUM - SERUM 1.8 mg/dL (1.8-2.4)
[2019-08-27 18:59] LABS: TROPONIN-I < 0.017 ng/mL (0.000-0.060)
--- NOTE | 2019-08-27 21:11 | NUR ---
ARRIVED FROM ER. PATIENT IS ALERT AND ORIENTED. RESPIRATIONS ARE EVEN AND UNLABORED. NO S/S OF DISTRESS. NO C/O PAIN. CALL LIGHT WITHIN REACH. WILL CPOC.
[2019-08-27] MEDS ORDERED: ATIVAN1 MG PO (21:25)
[2019-08-27 21:40] VITALS: BP 159/59; BMI 31.5
[2019-08-28] VITALS: BP 129/69
[2019-08-28 00:41] LABS: CKMB 0.6 U/L (0.0-3.6); CREATINE KINASE 69 UL (21-215); TROPONIN-I < 0.017 ng/mL (0.000-0.060)
[2019-08-28 04:00] VITALS: BP 126/66
--- NOTE | 2019-08-28 07:10 | NUR ---
REPORT RECEIVED FROM SPECIAL SERVICES DIRECTOR AND PATIENT CARE ASSUMED. PATIENT LAYING IN BED AWAKE, ALERT AND ORIENTED X 4. PATIENT IS STABLE AND VSS. PATIENT DENIES ANY NEEDS OR PAIN. WILL CONTINUE WITH PLAN OF CARE. SR UP X2 BED IN LOW POSITION AND CALL LIGHT IN REACH. AT BS.
[2019-08-28 07:28] LABS: CKMB 0.5 U/L (0.0-3.6); CREATINE KINASE 59 UL (21-215)
[2019-08-28 07:32] LABS: TROPONIN-I < 0.017 ng/mL (0.000-0.060)
[2019-08-28 09:06] VITALS: BP 122/71
[2019-08-28 12:23] VITALS: Ht 157.5 cm; Wt 78.0 kg
--- NOTE | 2019-08-28 15:14 | NUR ---
RECEVED PHONE CALL FROM DR HOLLOWAY. STATES PATIENT HAD ABNORMAL RESULTS TO STRESS TEST AND NEEDS A LEFT HEART CATH JOSE AND TO PREP PATIENT JOSE. INFORMED THAT PATIENT HAD LUNCH AND DR HOLLOWAY SAID DUE TO ABNORMAL RESULT SHE WILL PROCEED WITH [place]. OBTAINED CONSENTS. PATIENT PREOP PER MAR ORDERS. PATIENT IS STABLE AND VSS. PATIENT TO TOWNSHIP CLERK VIA HOSPITAL BED AND [place]OWNS[place]IP CLERK TEAM. TO WAIT IN HOSPITAL ROOM.
--- NOTE | 2019-08-28 18:06 | NUR ---
PATIENT IS STABLE AND VSS. PATIENT DENIES ANY NEEDS OR PAIN. ORDERS RECIEVED FOR DC. WRITTEN AND VERBAL INSTRUCTIONS GIVEN. PATIENT AND VERBALIZED UNDERSTANDING. PATIENT SIGNED PAPERWORK. IV DCD WITHOUT DIFFICULTY WITH ENTIRE CATHETER INTACT. PRESSURE DRESSING APPLIED. PATIENT TO FRONT DOOR VIA WC ACCOMPANIED BY HOSPITAL PERSONNEL. PATIENT IS DCD TO HOME FOR SELF CARE. PATIENT TO PRIVATE VEHICLE DRIVEN BY .
== END 2019-08-28 18:10 | disposition home or self-care (01) ==
LOC: D.ER 18:03 → OBSVTIME 20:03 → D.M2 20:03
PROVIDERS: Emergency Medicine; Family Medicine; ADMIT Internal Medicine Interventional Cardiology; ATTEND Internal Medicine Interventional Cardiology
DX: R07.9 Chest pain, unspecified (principal); K21.9 Gastro-esophageal reflux disease without esophagitis; Z86.718 Personal history of other venous thrombosis and embolism

== ENCOUNTER 2019-11-18 02:12 | Emergency (ER) | payer MEDICARE, BC ==
[~2019-11-18] VITALS: Ht 157.5 cm; Wt 76.8 kg
[~2019-11-18 02:12] MED LIST changes: +ATIVAN1 MG PO
[2019-11-18 02:14] VITALS: Ht 157.5 cm; Wt 76.8 kg
[2019-11-18 02:43] LABS: BASOPHILS 0.2 % (0-2); EOSINOPHILS 0.3 % (0-7); HEMATOCRIT 32.5 % (36.0-48.0); HEMOGLOBIN 10.8 g/dL (12-16); IMMATURE GRANULOCYTES 0.2 % (0-5); MCH 27.8 pg (26.0-34.0); MCHC 33.2 g/dL (31.0-37.0); MCV 83.8 fL (80.0-100.0); MONOCYTES 5.3 % (2-11); RBC 3.88 10x6/uL (4.00-5.40); RDW 15.8 % (11.5-14.5); WBC 5.9 10x3/uL (4.8-10.8)
[2019-11-18 02:45] LABS: PLATELET COUNT 232 10x3/uL (130-400)
[2019-11-18 03:14] LABS: CALC OSMOLALITY 281 mosm/kg (275-300); CALCIUM 9.4 mg/dL (8.5-10.1); CARBON DIOXIDE 23.9 mmol/L (21.0-32.0); CHLORIDE - SERUM 104 mmol/L (98-107); CREATININE - SERUM 1.1 mg/dL (0.6-1.3); GLUCOSE 116 mg/dL (74-106); POTASSIUM - SERUM 3.2 mmol/L (3.5-5.1); SODIUM 139 mmol/L (136-145); UREA NITROGEN 22 mg/dL (7-18); eGFR NON AFRICAN AMERICAN 53 mL/min (90-120)
[2019-11-18 03:15] LABS: APTT 32.7 SECONDS (22.8-39.4); INR 1.84 (0.85-1.17)
[2019-11-18 03:23] LABS: D-DIMER-QUANTITATIVE < 0.27 ug/mLFEU (0.20-0.54)
[2019-11-18 03:37] LABS: ALBUMIN 3.6 g/dL (3.4-5.0); ALKALINE PHOSPHATASE 107 U/L (30-120); ALT (SGPT) 114 U/L (10-68); BILIRUBIN - TOTAL 0.52 mg/dL (0.2-1.3); CKMB 0.8 U/L (0.0-3.6); CREATINE KINASE 71 UL (21-215); MAGNESIUM - SERUM 1.9 mg/dL (1.8-2.4); PROTEIN - SERUM 8.1 g/dL (6.4-8.2)
[2019-11-18 03:38] LABS: TROPONIN-I < 0.017 ng/mL (0.000-0.060)
[2019-11-18 05:11] LABS: CKMB 0.7 U/L (0.0-3.6); CREATINE KINASE 67 UL (21-215)
[2019-11-18 05:14] LABS: TROPONIN-I < 0.017 ng/mL (0.000-0.060)
[2019-11-18] MEDS ORDERED: PROTONIX40 MG PO (05:34)
[2019-11-18 06:29] VITALS: BP 134/64
== END 2019-11-18 06:32 | disposition home or self-care (01) ==
LOC: D.ER 02:12
PROVIDERS: Family Medicine
DX: R07.9 Chest pain, unspecified (principal); K21.9 Gastro-esophageal reflux disease without esophagitis; E87.6 Hypokalemia

== ENCOUNTER → 2020-01-15 09:15 | Outpatient (CLI) | payer MEDICARE, BC ==
[2019-11-18 02:14] VITALS: BMI 31.0
== END | disposition home or self-care (01) ==
LOC: D.NM 09:15
PROVIDERS: ATTEND Internal Medicine Gastroenterology
DX: R93.3 Abnormal findings on diagnostic imaging of other parts of digestive tract (principal)

== ENCOUNTER 2020-05-18 18:20 | Observation (INO) | payer MEDICARE, BC ==
[~2020-05-18] VITALS: Ht 157.5 cm; Wt 76.7 kg
--- NOTE | ~2020-05-18 | HEMODYNAMI ---
PATIENT:TATYANA ESPINOZA MEDICAL RECORD: [id number] : 53 LOCATION:[facility] D.2121 ADMISSION DATE: 05/19/20 Generatedon:05/19/202014:19 Patient name: TATYANA ESPINOZA Patient #: [id number] SSN: [id number] : 1955 Date of study: 05/19/2020 Page: Of Hemodynamic Procedure Report Patient Data Patient Demographics Procedure consent was obtained First Name: TATYANA Gender: Female Last Name: ALEXIS : 1955 Middle Initial: AZAEL Age: 64 year(s) Patient #: [id number] Race: Black SSN: [id number] Additional ID: [id number] Contact details [address]: [address] [place] [address] State: [place] City: [place] Zip code: [address] Past Medical History Allergies Allergen Reaction Date Comments Reported Other allergy 05/19/2020 FLORENCE HERRERA Admission Admission Data Admission Date: 05/19/2020 Admission Time: 0:34 Arrival Date: 05/12/2020 Arrival Time: 0:00 Room #: D.2121 Height (in.): 61.81 BSA: 1.78 (m2) Height (cm.): 157 BMI: 31.24 (kg/m2) Weight (lbs.): 169.76 Weight (kg.): 77 Lab Results Lab Result Date: 05/19/2020 Lab Result Time: 0:00 Biochemistry Name Units Result Min Max BUN mg/dl 16 --(---*)-- 7 18 Creatinine mg/dl 0.9 --(-*--)-- 0.6 1.3 eGFR ml/min 67.40360 *-(----)-- 90 120 NONAFRICAN CBC Name Units Result Min Max Hematocrit % 32.5 *-(----)-- 42 54 Hemoglobin g/dl 10.4 *-(----)-- 13.5 17.5 Procedure Procedure Types Cath Procedure Diagnostic Procedure [facility] w/Coronaries Procedure Description Procedure Date Procedure Date: 05/19/2020 Procedure Start Time: 14:04 Procedure End Time: 14:17 Procedure Staff Name Function Robert Napoles MD Performing Physician Florina Dukes RT Monitor Nenita Hussein RT Scrub Yelena Reyes RN Nurse Procedure Data Cath Procedure Fluoroscopy Diagnostic fluoroscopy Total fluoroscopy Time: 0.9 time: 0.9 min min Diagnostic fluoroscopy Total fluoroscopy dose: 201 dose: 201 mGy mGy Contrast Material Contrast Material Type Amount (ml) Isovue 300 40 Entry Location Entry Primary Successful Side Size Upsize Upsize Entry Closure Succes sful Closure Location (Fr) 1 (Fr) 2 (Fr) Remarks Device Remarks Femoral Right 5 Fr Exoseal artery Estimated blood loss: 5 ml Diagnostic catheters Device Type Used For End Catheter Placement MULTIPACK JL 4.0 5Fr Left Coronary catheter Angiography MULTIPACK 3DRC 5Fr Right Coronary catheter Angiography MULTIPACK Pigtail 5 Fr LV Angiography catheter Procedure Complications No complications Procedure Medications Medication Administration Route Dosage 0.9% NaCl I.V. 100 ml/hr Oxygen etCO2 Nasal cannula 2 l/min Heparin Flush Bag added to field 2 bags (1000units/500ml NS) Lidocaine 2% added to field 20 Versed I.V. 2 mg Fentanyl I.V. 100 mcg Versed I.V. 1 mg Hemodynamics Rest BSA: 1.78 (m2) HGB: 10.4 (g/dl) O2 Consumption: Estimated: 152.36 (ml/min) O2 Co nsumption indexed: Estimated:85.6 (ml/min/m) Heart Rate: 49 (bpm) Pressure Samples Time Site Value (mmHg) Purpose Heart Use Rate(bpm) 14:09 LV 89/1,7 Snapshot 64 Gradients Valve Time Site Site Mean SEP/DFP Peak To Heart Use 1 2 (mmHg) (sec/min) Peak Rate (mmHg) (bpm) Aortic 14:10 LV AO 62 Snapshots Pre Cath Intra NCS Post Cath Vital Signs Time Heart Resp SPO2 etCO2 NIBP Rhythm Pain Sedation Rate (ipm) (%) (mmHg) (mmHg) Status Level (bpm) 13:59:14 52 15 98 39.8 111/57(79) SB 0 (11) 10(A) , No pain 14:03:24 60 15 96 42.9 103/56(73) SB 0 (11) 10(A) , No pain 14:07:38 64 15 93 45.9 98/54(68) NSR 0 (11) 9(A) , No pain 14:11:50 61 13 97 12.7 103/56(70) NSR 0 (11) 10(A) , No pain Medications Time Medication Route Dose Verified Delivered Reason Notes Effe ctiveness by by 13:57:20 0.9% NaCl I.V. 100 Robert Buffie ml/hr [facility] Luc[facility] Reyes RN, MD 13:58:04 Oxygen etCO2 2 Robert Buffie used for Nasal l/min [facility] Luciano Reyes RN procedure cannula 13:58:25 Heparin Flush added 2 Robert Robert Bag to bags [place] Yesika (1000units/500ml field MD TOM NS) 13:58:40 Lidocaine 2% added 20ml Robert Robert to vial Yesika St Luciano turner MD, MD 14:03:07 Versed I.V. 2 mg Robert Buffie for [facility] Luciano Reyes RN sedation 14:03:14 Fentanyl I.V. 100 Robert Buff[address] for mcg [facility] Luciano Reyes RN sedation 14:08:42 Versed I.V. 1 mg Robert Buffie for [facility] Luciano Reyes RN sedation Procedure Log Time Note 13:35:00 Informed consent obtained and on chart 13:35:45 Procedure Status Urgent Heart Cath (IP). 13:35:46 Time tracking: Regular hours (M-F 7:00 - 5:00) 13:35:49 Plan of Care:Hemodynamics will remain stable., Cardiac rhythm will remain stable., Comfort level will be maintained., Respiratory function will remain adequate., Patient/ family verbilizes understanding of procedure., Procedure tolerated without complication., Recovers from procedure without complications.. 13:35:52 Florina Dukes RT(R) (CV) sent for patient. Start room use. 13:37:25 H&P Date Dictated: 05/19/2020 ER History on chart.. 13:37:59 Patient allergic to Other allergyELIQUIS, ASA 13:39:27 Lab Result : BUN 16 mg/dl 13:39:27 Lab Result : Creatinine 0.9 mg/dl 13:39:27 Lab Result : eGFR NONAFRICAN 67.12331 ml/min 13:39:27 Lab Result : Hemoglobin 10.4 g/dl 13:39:27 Lab Result : Hematocrit 32.5 % 13:39:36 Patient Weight : 169.76 lbs 13:39:46 Patient Height : 61.81 inches 13:47:00 Patient received from Med II to CCL 1 Alert and oriented. Tansferred to table in Supine position. 13:47:01 Warm blankets applied, and karen hugger turned on for patient comfort. 13:47:01 Correct patient and procedure confirmed by team. 13:47:02 ECG and BP/O2 sat monitors applied to patient. 13:57:20 0.9% NaCl 100 ml/hr I.V. was administered by Yelena Reyes RN; ; Verbal order read back and verified. 13:58:01 Vital chart was started 13:58:03 Baseline sample Acquired. 13:58:04 Oxygen 2 l/min etCO2 Nasal cannula was administered by Yelena Reyes RN; used for procedure; Verbal order read back and verified. 13:58:13 Rhythm: sinus bradycardia 13:58:16 Full Disclosure recording started 13:58:17 - 13:58:18 Pre-procedure instructions explained to patient. 13:58:20 Pre-op teaching completed and patient verbalized understanding. 13:58:23 Family in patients room. 13:58:25 Heparin Flush Bag (1000units/500ml NS) 2 bags added to field was administered by Robert Napoles MD; ; Verbal order read back and verified. 13:58:26 Patient NPO since Breakfast. 13:58:33 Is the patient allergic to Iodine/contrast media? No. 13:58:40 Lidocaine 2% 20ml vial added to field was administered by Robert Napoles MD; ; Verbal order read back and verified. 13:58:58 Was the patient premedicated? Yes 13:59:00 Is patient on blood thinner?Yes 13:59:07 ACC The patient was administered the following blood thiners within the last 24 hours: Xarelto 13:59:19 Patient diabetic? Yes. 13:59:31 If diabetic: On Metformin? No 13:59:33 ----Pre-sedation anethsthesia assessment.---- 13:59:37 Previous problem with sedation/anesthesia? No ? 13:59:39 Snore? Yes 13:59:42 Sleep apnea? No 13:59:45 Deviated septum? Unknown 13:59:48 Opens mouth fully? Yes 13:59:50 Sticks out tongue? Yes 14:00:24 Airway obstruction? Yes ?ASTHMA. 14:00:42 Dentures? No ? 14:00:49 Pre procedure: right dorsailis pedis pulse 2+ Normal; easily identifiable; not easily obliterated 14:01:21 IV patent on arrival in left antecubital with 0.9% NaCl at [facility]. 14:01:30 Right groin area was prepped with chlora-prep and draped in sterile fashion 14:01:32 Alarms reviewed by R. N. 14:01:33 Sharps counted by scrub and verified by R.N. 14:02:09 Physician arrived 14:02:10 --------ALL STOP TIME OUT------ 14:03:07 Versed 2 mg I.V. was administered by Yelena Reyes RN; for sedation; Verbal order read back and verified. 14:03:14 Fentanyl 100 mcg I.V. was administered by Yelena Reyes RN; for sedation; Verbal order read back and verified. 14:03:43 Final Timeout: patient, procedure, and site verified with staff and physician. All members of the team are in agreement. 14:03:45 Right groin site verified by team. 14:03:51 Fire Safety Assessment: A--An alcohol-based skin anteseptic being used preoperatively., C--Open oxygen or nitrous oxide is being used., D--An ESU, laser, or fiber-optic light is being used. 14:03:55 Physical assessment completed. ASA score P 2 - A patient with mild systemic disease as per Robert Napoles MD. 14:04:00 3a) 45-59 Moderately reduced kidney function. 14:04:05 Maximum allowable contrast dose (3.7 X eGFR X 0.75)161 ml. 14:04:13 Sedation plan: IV Moderate Sedation Medication:Versed, Fentanyl 14:04:21 Use device set Femoral Dx 14:04:23 ACIST Syringe (94934) opened to sterile field. 14:04:24 Bag Decanter (2002S) opened to sterile field. 14:04:24 Medline Cath Pack ([id number]) opened to sterile field. 14:04:25 ACIST Hand Control (94185) opened to sterile field. 14:04:26 ACIST Manifold (93985) opened to sterile field. 14:04:27 DIAGNOSTIC Multipack 5Fr catheter set ([id number]) opened to sterile field. 14:04:28 Tegaderm 4 x 4 (1626W) opened to sterile field. 14:04:29 SHEATH 5FR [place] (BUK277) opened to sterile field. 14:04:30 EMERALD Guide Wire (602-508) opened to sterile field. 14:04:35 Procedure started. 14:04:41 Local anesthetic to right femoral artery with Lidocaine 2% by Robert Wolf MD.INITIAL ACCESS ONLY 14:04:58 A 5 Fr sheath was inserted into the Right Femoral artery 14:05:40 A MULTIPACK JL 4.0 5Fr catheter was advanced over the wire and used for Left Coronary Angiography. 14:05:44 Zero performed for pressure channel P1 14:06:02 Zero performed for pressure channel P1 14:06:15 Zero performed for pressure channel P1 14:06:42 LCA angiography performed. 14:06:46 Injector settings: Ml/sec: 3, Volume: 6, 14:07:16 Zero performed for pressure channel P1 14:07:33 Catheter removed. 14:07:45 A MULTIPACK 3DRC 5Fr catheter was advanced over the wire and used for Right Coronary Angiography. 14:07:59 Injector settings: Ml/sec: 3, Volume: 6, 14:08:25 RCA angiography performed. 14:08:38 Catheter removed. 14:08:42 Versed 1 mg I.V. was administered by Yelena Reyes RN; for sedation; Verbal order read back and verified. 14:08:46 A MULTIPACK Pigtail 5 Fr catheter was advanced over the wire and used for LV Angiography. 14:09:03 Injector settings: Ml/sec: 5, Volume: 15, 14:09:53 LV gram done using DOLAN 14:10:14 EF : 50 % 14:10:16 LV hemodynamics recorded. 14:10:17 Catheter removed. 14:10:20 EXOSEAL 5Fr (EX500) opened to sterile field. 14:10:38 Contrast amount:Isovue 300 40ml. 14:10:50 Sheath removed intact; hemostasis achieved with Exoseal to the Right Femoral artery. 14:10:54 Procedure ended.(Physican Out) 14:11:00 Fluoroscopy time 00.90 minutes. 14:11:05 Fluoroscopy dose: 201 mGy 14:11:05 Flurop Dose total: 201 14:11:13 Dose Area Product 9361 mGy/cm. 14:11:18 Maximum allowable dose exceeded? No. 14:11:19 Sharps counted by scrub and verified by R.N. 14:11:27 Post right femoral artery:stable 14:11:32 Post-op/insertion site Right Femoral artery dressed using a 4 x 4 and Tegaderm. 14:11:37 Post-procedure physical assessment completed. ASA score P 2 - A patient with mild systemic disease as per Robert Napoles MD. 14:11:44 Post procedure rhythm: unchanged. 14:11:49 Estimated blood loss: 5 ml 14:11:51 Post procedure instruction explained to patient.Patient verbalizes understanding. 14:11:53 Patient needs reinforcement of post procedure teaching. 14:12:37 Procedure and supply charges have been captured, reviewed, submitted an d are correct. 14:13:46 Procedure Complication : No complications 14:13:57 Vital chart was stopped 14:14:00 [facility] Findings: mild to moderate CAD (<70%) 14:14:04 See physician's report for complete and final results. 14:14:07 Report given to [facility]. 14:14:21 Arrival Date: 05/12/2020 12:00:00 AM 14:15:13 Lab results completed and on chart. 14:16:42 Patient transfered to [facility] with Bed. 14:17:31 Procedure ended. 14:17:31 Full Disclosure recording stopped 14:18:03 End room use (Document Last) Device Usage Item Name Manufacture Quantity Catalog Hospital Part Current Minimal L ot# / Number Charge Number Stock Stock Serial# Code ACIST Acist 1 41301 [id number] 900291 688970 20 Qoniac (02763) [employer] Inc Bag Microtek 1 767454 03910 631988 5 Decanter Medical Inc. (2002S) Medline Medline 1 [id number] 842895 08548 404293 5 Cath Pack ([id number]) ACIST Hand Acist 1 29575 422045 490610 484623 5 Control Medical (59950) Systems Inc ACIST Acist 1 77549 766171 092769 081498 5 Manifold Medical (21622) Systems Inc DIAGNOSTIC Cardinal 1 [id number] 021584 36671 233616 30 Multipack Health 5Fr catheter set (PX7965) Tegaderm 4 3M 1 1626W 381478 428755 879271 5 x 4 (1626W) SHEATH 5FR Terumo 1 MLZ243 194207 537685 301662 5 [place] (AHA762) EMERALD Cardinal 1 186-503 255000 890021 187553 5 Guide Wire Health (502-455) MULTIPACK Cardinal 1 225753 5 JL 4.0 5Fr Health catheter MULTIPACK Cardinal 1 313024 5 3DRC 5Fr Health catheter MULTIPACK Cardinal 1 562305 5 Pigtail 5 Health Fr catheter EXOSEAL 5Fr Cardinal 1 EX500 591964 772461 431020 10 (EX500) Health Signature Audit Allen Stage Time Signature Unsigned Intra-Procedure 05/19/2020 Florina 2:18:24 PM Ernst RT(R) (CV) Intra-Procedure 05/19/2020 Yelena Reyes RN 2:19:00 PM Intra-Procedure 05/19/2020 Robert Spring 2:19:35 PM Luciano TOM [id number] [place] [address]
--- NOTE | ~2020-05-18 | CN ---
PATIENT NAME:TATYANA ESPINOZA MEDICAL RECORD: [id number] : 53 LOCATION:. D.2121 ADMIT DATE: 05/19/20 ACCOUNT: [id number] CONSULTING PHYSICIAN: JULIETTE AHN MD REFERRING PHYSICIAN: ALLEN SANCHES MD DATE OF CONSULTATION: 05/19/2020 HISTORY OF PRESENT ILLNESS: A 64-year-old female with no known history of coronary artery disease. She has a history of progressive disease, status post intervention of the subclavian, history of hypertension, dyslipidemia, admitted with chest tightness and pressure, radiating to the jaw. This began after moving furniture, radiating to the left arm. We are asked to see her concerning her cardiovascular status. PAST MEDICAL HISTORY: Includes; 1. History of hypertension. 2. Hyperlipidemia. 3. Peripheral vascular disease. 4. Hypothyroidism, on replacement. ALLERGIES: ASPIRIN AND ELIQUIS. MEDICATIONS: Currently include Claritin 10 mg p.o. daily, Flexeril 10 p.o. at bedtime, Zanaflex 4 mg p.o. at bedtime, Xarelto 15 mg p.o. daily, Lyrica 75 mg p.o. daily, Zoloft 100 daily, Synthroid 50 mcg daily. SOCIAL HISTORY: Nonsmoker, nondrinker. Able to take care of her ADLs. REVIEW OF SYSTEMS: The patient reports easy bruising but reports no swollen glands. The patient reports no fever, no night sweats, no significant weight gain, no significant weight loss. No significant exercise tolerance. The patient reports no dry eyes, no irritation, no vision change. Patient reports no difficulty hearing and no ear pain. Patient reports no frequent nose bleeds or nose and sinus problems. Patient reports on arm pain on exertion. No shortness of breath while lying down. No history of heart murmur. Patient reports no cough, no wheezing or coughing up blood. Patient reports no abdominal pain, no vomiting. Normal appetite. No diarrhea and not vomiting blood. No nausea and no constipation. Patient reports no incontinence. No difficulty urinating. No hematuria. No increased frequency. Patient reports no muscle aches. No weakness, no arthralgias, no back pain. No swelling of the extremities. Patient reports no abnormal mole, no jaundice, no rashes. Reports no loss of consciousness. No weakness and no numbness. No seizures, dizziness, or headaches. The patient reports no depression, no sleep disturbance, feeling safe in a relationship and no alcohol abuse. Patient reports on fatigue. Reports no runny nose or sinus pressure. No itching, no hives, and no frequent sneezing. PHYSICAL EXAMINATION: GENERAL: Well-developed, well-nourished in no acute distress, appears stated age. VITAL SIGNS: Blood pressure 103/59, pulse 64 and regular. HEENT: Normocephalic, atraumatic. NECK: No JVD or bruit. HEART: Regular. A II/ systolic ejection murmur. LUNGS: Good air excursion. CONSULT REPORT [id number] ALEXISTATYANACHACORTA ADDISON ABDOMEN: Soft, nontender. EXTREMITIES: 1+ pulses. No edema. IMPRESSION: Acute coronary syndrome with rest symptomatology. PLAN: At this point, we will plan for angiography, intervention based on the above. TRANSINT:[id number] Voice Confirmation ID: [id number] DOCUMENT ID: [id number] JULIETTE AHN MD CC: [id number] DICTATION DATE: 05/19/20842 SUPERINTENDENT TRACK: 05/19/20 1031 ADM IN [facility] [address] [place] [address]
[2020-05-18 19:35] LABS: BASOPHILS 0.3 % (0-2); EOSINOPHILS 4.2 % (0-7); HEMATOCRIT 33.1 % (36.0-48.0); HEMOGLOBIN 10.9 g/dL (12-16); IMMATURE GRANULOCYTES 0.3 % (0-5); LYMPHOCYTES 25.3 % (15-50); MCH 27.9 pg (26.0-34.0); MCHC 32.9 g/dL (31.0-37.0); MCV 84.9 fL (80.0-100.0); MEAN PLATELET VOLUME 10.7 fL (7.4-10.4); MONOCYTES 9.8 % (2-11); NEUTROPHILS 60.1 % (40-80); PLATELET COUNT 226 10x3/uL (130-400); RDW 16.4 % (11.5-14.5); WBC 3.4 10x3/uL (4.8-10.8)
[2020-05-18 19:52] LABS: APTT 30.6 SECONDS (22.8-39.4); INR 1.09 (0.85-1.17); PROTIME 14.1 SECONDS (11.6-15.0)
[2020-05-18 19:57] LABS: CALC OSMOLALITY 281 mosm/kg (275-300); CALCIUM 8.3 mg/dL (8.5-10.1); CHLORIDE - SERUM 107 mmol/L (98-107); CREATININE - SERUM 1.2 mg/dL (0.6-1.3); GLUCOSE 97 mg/dL (74-106); POTASSIUM - SERUM 5.9 mmol/L (3.5-5.1); SODIUM 140 mmol/L (136-145); UREA NITROGEN 21 mg/dL (7-18); eGFR NON AFRICAN AMERICAN 48 mL/min (90-120)
[2020-05-18 20:15] LABS: ALBUMIN 3.3 g/dL (3.4-5.0); ALKALINE PHOSPHATASE 66 U/L (30-120); AMYLASE - SERUM 30 U/L (25-115); BILIRUBIN - TOTAL 0.39 mg/dL (0.2-1.3); CKMB 1.2 U/L (0.0-3.6); CREATINE KINASE 216 UL (21-215); LIPASE 71 U/L (73-393); MAGNESIUM - SERUM 2.3 mg/dL (1.8-2.4); PROTEIN - SERUM 7.8 g/dL (6.4-8.2)
[2020-05-18 20:29] LABS: ALT (SGPT) 39 U/L (10-68); TROPONIN-I < 0.017 ng/mL (0.000-0.060)
--- NOTE | 2020-05-18 21:00 | NUR ---
PT PROVIDED WITH BLANKET AND ASSISTED INTO A POSITION OF COMFORT. NO OTHER NEEDS EXPRESSED AT THIS TIME.
[2020-05-18 23:56] LABS: CKMB 4.6 U/L (0.0-3.6); CREATINE KINASE 221 UL (21-215)
[2020-05-18 23:57] LABS: TROPONIN-I < 0.017 ng/mL (0.000-0.060)
--- NOTE | 2020-05-19 | NUR ---
PT ASSISTED TO THE RESTROOM AT THIS TIME.
[2020-05-19] MEDS ORDERED: MAG-OXIDE400 MG PO (01:37)
[2020-05-19] MEDS ORDERED: CYCLOBENZAPRINE10 MG PO (01:37)
[2020-05-19] MEDS ORDERED: CYANOCOBAL1000 MCG/4 SC (01:38)
[2020-05-19] MEDS ORDERED: FLUTICASONE PRO16 GM NASAL (01:38)
[2020-05-19] MEDS ORDERED: METHOCARBAMOL750 MG PO (01:39)
[2020-05-19] MEDS ORDERED: ZANAFLEX4 MG PO (01:40)
[2020-05-19] MEDS ORDERED: ULTRAM50 MG PO (01:40)
[2020-05-19 01:45] VITALS: BP 139/55; BMI 31.0
[2020-05-19] MEDS ORDERED: IBANDRONATE SO150 MG PO (02:06)
[2020-05-19] MEDS ORDERED: CLARITIN 10 MG10 MG PO (02:06)
[2020-05-19] MEDS ORDERED: ATIVAN1 MG PO (02:07)
[2020-05-19] MEDS ORDERED: ZOLOFT100 MG PO (02:08)
[2020-05-19] MEDS ORDERED: OSPHENA 60 MG PO (02:09)
[2020-05-19] MEDS ORDERED: MECLIZINE HCL25 MG PO (02:10)
[2020-05-19 04:00] VITALS: BP 121/53
[2020-05-19 06:39] LABS: BASOPHILS 0.3 % (0-2); EOSINOPHILS 4.7 % (0-7); HEMATOCRIT 32.5 % (36.0-48.0); HEMOGLOBIN 10.4 g/dL (12-16); LYMPHOCYTES 30.9 % (15-50); MCH 27.1 pg (26.0-34.0); MCV 84.6 fL (80.0-100.0); MEAN PLATELET VOLUME 8.4 fL (7.4-10.4); MONOCYTES 10.7 % (2-11); NEUTROPHILS 53.4 % (40-80); RBC 3.84 10x6/uL (4.00-5.40); RDW 16.2 % (11.5-14.5); WBC 3.2 10x3/uL (4.8-10.8)
[2020-05-19 06:40] LABS: PLATELET COUNT 144 10x3/uL (130-400)
[2020-05-19 07:17] LABS: ALKALINE PHOSPHATASE 61 U/L (30-120); ALT (SGPT) 35 U/L (10-68); BILIRUBIN - TOTAL 0.26 mg/dL (0.2-1.3); CALC OSMOLALITY 287 mosm/kg (275-300); CALCIUM 7.6 mg/dL (8.5-10.1); CARBON DIOXIDE 25.9 mmol/L (21.0-32.0); CHLORIDE - SERUM 110 mmol/L (98-107); CKMB 0.8 U/L (0.0-3.6); CREATINE KINASE 79 UL (21-215); CREATININE - SERUM 0.9 mg/dL (0.6-1.3); GLUCOSE 90 mg/dL (74-106); MAGNESIUM - SERUM 2.2 mg/dL (1.8-2.4); PHOSPHOROUS 2.4 mg/dL (2.5-4.9); PROTEIN - SERUM 6.7 g/dL (6.4-8.2); SODIUM 144 mmol/L (136-145); THYROID STIMULATING HORMONE 0.79 uIU/mL (0.36-3.74); UREA NITROGEN 16 mg/dL (7-18); eGFR NON AFRICAN AMERICAN 67 mL/min (90-120)
[2020-05-19 07:21] LABS: POTASSIUM - SERUM 3.5 mmol/L (3.5-5.1); TROPONIN-I < 0.017 ng/mL (0.000-0.060)
[2020-05-19 08:01] VITALS: BP 103/59
[2020-05-19 08:41] LABS: CHOL - HDL RATIO 2.6 ratio (2.3-4.1); LDL-HDL RATIO 1.2 ratio (1.5-3.5)
[2020-05-19 11:51] LABS: CKMB 0.9 U/L (0.0-3.6); CREATINE KINASE 71 UL (21-215)
[2020-05-19 11:52] LABS: TROPONIN-I < 0.017 ng/mL (0.000-0.060)
[2020-05-19 13:19] VITALS: Ht 157.5 cm; Wt 76.7 kg
[2020-05-19 13:28] VITALS: BP 116/49
--- NOTE | 2020-05-19 14:48 | NUR ---
PT RETURNED FROM [employer]. RIGHT FEMORAL CATH SITE IS C/D/I WITH NO S/S OF HEMATOMA PRESENT. NO S/S OF DISTRESS NOTED. NS INFUSING @200ML/HR VIA L.FOR PIV. PT DENIES ANY NEEDS. WILL CTM.
[2020-05-19 16:04] VITALS: BP 101/49
--- NOTE | 2020-05-19 17:12 | NUR ---
PT DISCHARGED HOME VIA WHEELCHAIR WITH FAMILY. PIV REMOVED WITH CATHETER TIP FULLY INTACT. TELEMETRY REMOVED AND RETURNED. PT SIGNED PROPER DISCHARGE INSTRUCTIONS AND REMOVED ALL VALUABLES FROM THE ROOM.
== END 2020-05-19 17:13 | disposition home or self-care (01) ==
LOC: D.ER 18:20 → D.M2 05-19 00:34 → OBSVTIME 05-19 00:34 → D.M2 05-19 00:34
PROVIDERS: Family Medicine; Internal Medicine Interventional Cardiology; ADMIT Family Medicine; ATTEND Family Medicine
DX: R07.9 Chest pain, unspecified (principal); K21.9 Gastro-esophageal reflux disease without esophagitis; D64.9 Anemia, unspecified; Z79.01 Long term (current) use of anticoagulants; F41.8 Other specified anxiety disorders; M19.90 Unspecified osteoarthritis, unspecified site; M54.9 Dorsalgia, unspecified; G89.29 Other chronic pain; F03.90 Unspecified dementia, unspecified severity, without behavioral disturbance, psychotic disturbance, mood disturbance, and anxiety; R74.0 Nonspecific elevation of levels of transaminase and lactic acid dehydrogenase [LDH]; Z85.038 Personal history of other malignant neoplasm of large intestine; I10 Essential (primary) hypertension; E78.5 Hyperlipidemia, unspecified; E03.9 Hypothyroidism, unspecified

== ENCOUNTER 2021-01-12 17:00 | Outpatient (CLI) | payer MEDICARE, BC ==
[2020-05-19 13:19] VITALS: BMI 30.9
[~2021-01-12 17:00] MED LIST changes: +CLARITIN 10 MG10 MG PO; +CYANOCOBAL1000 MCG/4 SC; +CYCLOBENZAPRINE10 MG PO; +FLUTICASONE PRO16 GM NASAL; +IBANDRONATE SO150 MG PO; +MAG-OXIDE400 MG PO; +MECLIZINE HCL25 MG PO; +METHOCARBAMOL750 MG PO; +OSPHENA 60 MG PO; +ZANAFLEX4 MG PO; +ZOLOFT100 MG PO
== END 2021-01-12 23:59 | disposition home or self-care (01) ==
LOC: D.MAMMO 17:00
PROVIDERS: ATTEND Family Medicine
DX: Z12.31 Encounter for screening mammogram for malignant neoplasm of breast (principal)

== ENCOUNTER 2021-02-16 05:35 | Day surgery (SDC) | payer MEDICARE, BC ==
[2021-02-13 10:46] LABS: BASOPHILS 0.6 % (0-2); EOSINOPHILS 1.4 % (0-7); HEMATOCRIT 34.2 % (36.0-48.0); LYMPHOCYTES 33.2 % (15-50); MCH 26.9 pg (26.0-34.0); MCHC 32.2 g/dL (31.0-37.0); MCV 83.6 fL (80.0-100.0); MEAN PLATELET VOLUME 6.2 fL (7.4-10.4); MONOCYTES 11.9 % (2-11); NEUTROPHILS 52.9 % (40-80); RBC 4.09 10x6/uL (4.00-5.40); RDW 17.5 % (11.5-14.5); WBC 3.4 10x3/uL (4.8-10.8)
[2021-02-13 10:48] LABS: PLATELET COUNT 202 10x3/uL (130-400)
[2021-02-13 10:49] LABS: CALCIUM 8.5 mg/dL (8.5-10.1); CARBON DIOXIDE 31.9 mmol/L (21.0-32.0); CREATININE - SERUM 1.2 mg/dL (0.6-1.3); POTASSIUM - SERUM 3.9 mmol/L (3.5-5.1)
[2021-02-13 11:01] LABS: APTT 31.9 SECONDS (22.8-39.4); INR 1.48 (0.85-1.17); PROTIME 16.6 SECONDS (11.6-15.0)
[~2021-02-16] VITALS: Ht 157.5 cm; Wt 74.8 kg
[~2021-02-16 05:35] MED LIST changes: +BENTYL 20 MG TA20 MG PO; +EFFEXOR XR75 MG PO; +OMEPRAZOLE20 M1 PO; -VITAMIN B-121000 MC3 PO; +VITAMIN B-121000 MCG PO
[2021-02-16 06:11] VITALS: BP 132/70; Ht 157.5 cm; Wt 74.8 kg
[2021-02-16 06:58] LABS: INR 1.03 (0.85-1.17); PROTIME 12.5 SECONDS (11.6-15.0)
[2021-02-16] MEDS ORDERED: HYDROCODON-ACE1 EAC7 PO (10:34)
--- NOTE | 2021-02-16 11:45 | NUR ---
1100 TO ROOM AWAKE, FOOT ELEVATED AND ICE PACK IN PLACE. DENIES PAIN. PT REQUEST A WALKER.
--- NOTE | 2021-02-16 11:46 | NUR ---
1115 VOIDED A LARGE AMT
--- NOTE | 2021-02-16 13:16 | NUR ---
1230 IV REMOVED AND INSTRUCTIONS GIVEN. PT GIVEN A RX FOR A WALKER. PT USED WALKER ON UNIT. NEEDS STAND BY ASSITANCE.
== END 2021-02-16 13:10 | disposition home or self-care (01) ==
LOC: D.OPS 05:35
PROVIDERS: Anesthesiology; ATTEND Podiatrist Foot & Ankle Surgery
DX: M21.611 Bunion of right foot (principal); M20.11 Hallux valgus (acquired), right foot